=== PATIENT | female | born 1975 | race Caucasian/White ===

== ENCOUNTER 2017-02-13 08:42 | Emergency (ER) | payer BC ==
[2017-02-13 09:12] VITALS: BP 122/80
--- NOTE | 2017-02-13 09:54 | UC ---
Eye Complaint HPI - HPI Summary HPI Summary: she has had uri symptoms and right ear pain and st for a few days and then today noted purulent gt eye discharge. - History of Current Complaint Chief Complaint: UCGeneralIllness Stated Complaint: EYES SORE THROAT SINUS Time Seen by Provider: 02/13/17 09:44 Hx Obtained From: Patient Hx Last Menstrual Period: 01/16/17 ?: No Onset/Duration: Gradual Onset, Lasting Days Timing: Constant Severity Initially: Mild Severity Currently: Moderate Aggravating Factor(s): Nothing Alleviating Factor(s): Nothing Associated Signs And Symptoms: Positive: Drainage (Purulent). Negative: Photophobia, Drainage (Clear), Vision Impairment Bilateral, Vision Impairment Right, Vision Impairment Left, Fever, Swelling - Allergies/Home Medications Allergies/Adverse Reactions: Allergies Allergy/AdvReac Type Severity Reaction Status Date / Time No Known Allergies Allergy Verified 02/13/17 09:12 Home Medications: Home Medications Ibuprofen TAB* [Motrin TAB* 600 MG] 400 mg PO Q6H PRN 02/13/17 [History Confirmed 02/13/17] Sertraline* [Zoloft*] 150 mg PO DAILY 02/13/17 [History Confirmed 02/13/17] PMH/Surg Hx/FS Hx/Imm Hx Endocrine History Of: Denies: Diabetes - Surgical History Surgical History: Yes Surgery Procedure, Year, and Place: T & A - Family History Known Family History: Negative: Diabetes - Social History Occupation: Employed Full-time Lives: With Family Alcohol Use: Occasionally Substance Use Type: None Smoking Status (MU): Never Smoked Tobacco Review of Systems All Other Systems Reviewed And Are Negative: Yes Physical Exam Triage Information Reviewed: Yes Appearance: Well-Appearing, No Pain Distress, Well-Nourished Vital Signs: Initial Vital Signs Temp 97.9 F 02/13/17 09:06 Pulse 90 02/13/17 09:06 Resp 16 02/13/17 09:06 BP 122/80 02/13/17 09:06 Pulse Ox 99 02/13/17 09:06 Vital Signs Reviewed: Yes Eyes: Positive: Conjunctiva Inflamed, Discharge - gt eye purulent discharge with mild conjunctivitis. ENT: Positive: Normal ENT inspection, Hearing grossly normal, Pharyngeal erythema, Nasal congestion, TMs normal, TM dull. Negative: Pharynx normal, Nasal drainage, TM bulging, TM red, Tonsillar swelling, Tonsillar exudate, Trismus, Muffled/hoarse voice Neck exam: Normal Neck: Positive: Supple, Nontender, No Lymphadenopathy. Negative: Nuchal Rigidity Respiratory Exam: Normal Respiratory: Positive: Chest non-tender, Lungs clear, Normal breath sounds, No respiratory distress, No accessory muscle use. Negative: Respiratory distress, Decreased breath sounds, Accessory muscle use, Crackles, Rhonchi, Stridor, Wheezing Cardiovascular Exam: Normal Cardiovascular: Positive: RRR, No Murmur, Pulses Normal Abdominal Exam: Normal Abdomen Description: Positive: Nontender, No Organomegaly Musculoskeletal Exam: Normal Musculoskeletal: Positive: Strength Intact, ROM Intact, No Edema Neurological Exam: Normal Neurological: Positive: Alert, Muscle Tone Normal. Negative: Fatigued, Lethargic, Unresponsive, Abnormal Muscle Tone Psychological Exam: Normal Skin Exam: Normal Skin: Negative: rashes, breakdown Eye Complaint Course/Dx - Differential Dx/Diagnosis Differential Diagnosis/HQI/PQRI: Conjunctivitis, Corneal Abrasion, Foreign Body , Hyphema, Penetrating Injury, Periorbital Cellulitis, Orbital Cellulitis, Retinal Artery Occlusion, Uveitis Provider Diagnoses: uri and congestion. viral uri. viral pharyngitis. gt bacterial conjunctivitis. Discharge - Discharge Plan Condition: Good Disposition: HOME Prescriptions: Sulfacetamide 10 % OPTH.JONNATHAN* [Sulamyd 10% Opth*] 1 drop BOTH EYES Q4H #1 btl Forms: *Work Release Referrals: Татьяна Renee MD [Primary Care Provider] - If Needed
== END 2017-02-13 10:05 | disposition home or self-care (01) ==
LOC: UCCORT 08:42
DX: J06.9 Acute upper respiratory infection, unspecified (principal); H10.33 Unspecified acute conjunctivitis, bilateral
CPT/HCPCS: 99212; G0463

== ENCOUNTER 2017-05-15 19:12 | Emergency (ER) | payer BC | END 2017-05-15 20:24 | disposition left against medical advice (07) | LOC: UCCORT 19:12 | DX: H92.09 Otalgia, unspecified ear (principal); Z53.21 Procedure and treatment not carried out due to patient leaving prior to being seen by health care provider ==

== ENCOUNTER 2017-05-17 07:24 | Emergency (ER) | payer BC ==
[2017-05-17 07:39] VITALS: BP 129/86
--- NOTE | 2017-05-17 08:15 | UC ---
Throat Pain/Nasal Scott HPI - HPI Summary HPI Summary: pt reports 05/20 pain burning/aching in the roof of her mouth that radiates to her bl ears. this has been going on since last saturday. pt has pain with swallowing. she states that the pain is not gettiing worse but it is also not getting better. she feels run down and congested. denies f/c, cough, ledesma(" pain is lower...above my palate and I feel it around my [pointing to upper] teeth" . pt is 12 days s/p gastric bypass surgery. surgeon was called and re-assured pt that presenting sx were not related to surg. - History of Current Complaint Chief Complaint: UCGeneralIllness Stated Complaint: ORAL COMPLAINT Time Seen by Provider: 05/17/17 07:34 Hx Obtained From: Patient Hx Last Menstrual Period: 01/16/17 Onset/Duration: Gradual Onset, Lasting Days - 5, Still Present Severity: Moderate Pain Intensity: 7 Cough: None Associated Signs & Symptoms: Positive: Dysphagia - painful, Sinus Discomfort, Nasal Discharge. Negative: Drooling, Wheezing, Hoarseness, Fever, Vomiting, Rash - Allergies/Home Medications Allergies/Adverse Reactions: Allergies Allergy/AdvReac Type Severity Reaction Status Date / Time No Known Allergies Allergy Verified 05/17/17 07:31 Home Medications: Home Medications Acetaminophen TAB* [Tylenol TAB*] 1,000 mg PO TID PRN 05/17/17 [History Confirmed 05/17/17] Omeprazole CAP* [Prilosec CAP* 20 MG] 20 mg PO DAILY 05/17/17 [History Confirmed 05/17/17] PMH/Surg Hx/FS Hx/Imm Hx Previously Healthy: Yes - Surgical History Surgical History: Yes Surgery Procedure, Year, and Place: T & A. Gastric bypass April 2017 - Family History Known Family History: Negative: Cardiac Disease, Hypertension, Diabetes - Social History Alcohol Use: None Substance Use Type: None Smoking Status (MU): Never Smoked Tobacco - Immunization History Most Recent Influenza Vaccination: NONE Most Recent Tetanus Shot: UTD Most Recent Pneumonia Vaccination: N/A Review of Systems Constitutional: Negative Eyes: Negative ENT: Nasal Discharge, Other - pale boggy nasal mucosa Respiratory: Negative Cardiovascular: Negative Gastrointestinal: Negative Musculoskeletal: Negative Neurological: Negative Psychological: Negative All Other Systems Reviewed And Are Negative: Yes Physical Exam Triage Information Reviewed: Yes Appearance: Well-Appearing, No Pain Distress, Well-Nourished Vital Signs: Initial Vital Signs Temp 97.9 F 05/17/17 07:33 Pulse 104 05/17/17 07:33 Resp 18 05/17/17 07:33 BP 129/86 05/17/17 07:33 Pulse Ox 98 05/17/17 07:33 Vital Signs Reviewed: Yes Eyes: Positive: Conjunctiva Clear. Negative: Discharge ENT: Positive: Hearing grossly normal, Pharynx normal, Nasal drainage, Other: - pale boggy nasal mucosa Neck: Positive: Supple, Nontender, No Lymphadenopathy Respiratory: Positive: Lungs clear, Normal breath sounds, No respiratory distress, No accessory muscle use Cardiovascular: Positive: Tachycardia, Other: - murmur Musculoskeletal Exam: Normal Neurological: Positive: Alert, Muscle Tone Normal Psychological: Positive: Age Appropriate Behavior Skin Exam: Normal Throat Pain/Nasal Course/Dx - Differential Dx/Diagnosis Differential Diagnosis/HQI/PQRI: Peritonsillar Abscess, Pharyngitis, Sinusitis, Tonsillitis, URI, Other - shingles, oral herpes Provider Diagnoses: sinusitis Discharge - Discharge Plan Condition: Stable Disposition: HOME Prescriptions: Amoxicillin/Clavulanate TAB* [Augmentin TAB 875*] 875 mg PO BID #20 tab Patient Education Materials: Sinusitis (ED) Referrals: Татьяна Renee MD [Primary Care Provider] - Additional Instructions: AUGMENTIN: Augmentin is a mixture of amoxicillin and clavulanate. Amoxicillin is a member of the penicillin family. It covers the germs likely to cause ear, bronchial, and urinary infections better than plain penicillin. The addition of clavulanate allows it to cover staph infections of the skin, as well as resistant cases of ear and sinus infections. Your physician has chosen Augmentin for you because of the special nature of your situation. Augmentin is best taken with meals. Nausea after taking the medication is rare, but can occur. Diarrhea can occur, particularly in small children. Vaginal yeast infections, and oral thrush in infants are also common. Contact your physician if these problems occur. Allergy to penicillins is common. If you have had an allergic reaction to any drug of the penicillin family, you should never take any other penicillin. Notify your doctor at once if you develop hives, shortness of breath, swelling, or faintness. ANYTIME YOU TAKE AN ANTIBIOTIC, IT IS IMPORTANT TO REPLENISH THE BODY'D SUPPLY OF "GOOD BACTERIA." YOU CAN GET GOOD BACTERIA FROM HIGH QUALITY CULTURED FOODS SUCH LOCAL YOGURT, SOUR KRAUT, RADHA LUIS MIGUEL, NATURALLY FERMENTED PICKLES AND PROBIOTIC DRINKS. YOU CAN ALSO GET GOOD BACTERIA FROM A PROBIOTIC SUPPLEMENT.
== END 2017-05-17 08:15 | disposition home or self-care (01) ==
LOC: UCCORT 07:24
DX: J32.9 Chronic sinusitis, unspecified (principal); R07.0 Pain in throat; Z98.84 Bariatric surgery status
CPT/HCPCS: 99212; G0463

== ENCOUNTER 2019-11-23 10:13 | Emergency (ER) | payer BC ==
--- OUTSIDE RECORDS SUMMARY | 2019-11-23 11:54 | XMS REPORT | Continuity of Care Document ---
:1975 External Reference #:[id number] Author Name Faye Bradley, MS, [employer], CNM (transmitted by agent of provider Kendra Barbosa) Address [address] [place] [id number] Care Team Providers Name Role Phone Moraima Joseph MD - Internal Medicine Care Team Information Pass Worker [phone] Problems Active Problems Provider Date Sciatica Milton Mario MD, FACS Onset: 07/22/2014 Low back pain Milton Mario MD, FACS Onset: 07/22/2014 Arthralgia of the pelvic region and Milton Mario MD, FACS Onset: 2013 thigh Sprain of knee and leg Milton Mario MD, FACS Onset: 07/02/2014 Social History Type Date Description Comments Sex Unknown Tobacco Use Start: Unknown Never Smoked Cigarettes ETOH Use Denies alcohol use Tobacco Use Start: Unknown Patient denies history of smoking Smoking Status Reviewed: 09/25/19 Patient denies history of smoking Allergies, Adverse Reactions, Alerts Active Allergies Reaction Severity Comments Date No Known Drug Allergy 07/02/2014 Medications Active Medications SIG Qnty Indications Ordering Date Provider Ergocalciferol take one a week 14caps E55.9 [place], 09/25/2019 1.25mg MD Nicole (90002 Ut) Capsules Zoloft take one and a 135tabs Kendra Barbosa, 06/15/2019 100mg Tablets half tablet , PHD once a day at night Immunizations CPT Code Status Date Vaccine Lot # [id number] Given 09/25/2019 Influenza Virus Vaccine, Quadrivalent, 36 Mos+, [id number] Vital Signs Date Vital Result Comment 09/25/2019 8:40am BP Systolic Sitting Left Arm 104 mmHg BP Diastolic Sitting Left Arm 64 mmHg Body Temperature 98.8 F Heart Rate 64 /min Respiratory Rate 16 /min Height 68 inches 5'8" Weight 161.00 lb BMI (Body Mass Index) 24.5 kg/m2 BSA (Body Surface Area) 1.86 m2 [place] body weight in kilograms 63 kg Last Menstrual Period [id number] had ablasion O2 % BldC Oximetry 100 % Ra 05/19/2019 8:57am BP Systolic Sitting Left Arm 102 mmHg BP Diastolic Sitting Left Arm 62 mmHg Body Temperature 98.1 F Heart Rate 66 /min Respiratory Rate 18 /min Height 68 inches 5'8" Weight 171.00 lb BMI (Body Mass Index) 26.0 kg/m2 BSA (Body Surface Area) 1.91 m2 [place] body weight in kilograms 63 kg O2 % BldC Oximetry 98 % ra Results Test Acquired Date Facility Test Result H/L Range Note Laboratory test 09/25/2019 [facility] C. Difficile <pending> finding [address] [place] [address] [phone] Urine Dipstick 09/25/2019 [facility] Ua Color yellow Yellow Ua Clarity clear Clear Ua Leuko trace Negative Ua Nitrite negative Negative Ua Urobilinogen 0.2 0.2 - 1.0 E.U./dL Ua Protein negative Negative Ua PH 7.5 6.5-7.5 Ua Blood negative Negative Ua Specific [place] 1.015 1.010-1.030 Ua Ketones trace Negative Ua Bilirubin negative Negative Ua Glucose negative Negative CBC W/Automated 09/21/2019 [facility] White Blood 5.4 K/uL Normal 3.1-10.[address] [place] [address] [phone] Red Blood Count 4.80 M/uL Normal 3.90-5.40 Hemoglobin 14.2 gm/dL Normal 11.6-15.8 Hematocrit 40.8 % Normal 36.0-46.1 Mean Cell Volume 85.0 fl Normal 80.9-99.0 Mean Corpuscular HGB 29.6 pg Normal 25.9-32.7 Mean Corpuscular HGB Conc 34.8 g/dL High 30.8-34.3 Platelet Count 221 K/uL Normal 155-360 Red Cell Distri Width SD 36.3 fl Normal 36-47 Red Cell Distri Width %CV 11.9 % Normal 11.7-14.4 Mean Platelet Volume 10.4 fl Normal 8.9-12.4 Neut% 74.0 % High 40.4-72.8 Lymph % 18.8 % Low 20.0-42.0 [place] % 6.2 % Normal 4.3-13.2 Eo% 0.2 % Normal 0.0-6.6 Bas% 0.4 % Normal 0.0-1.1 Immature Grans 0.4 % Normal 0.0-5.0 NRBC % 0.0 /100WBC < 10/ 100 WBC Neut# 3.97 K/uL Normal 1.8-7.0 Lymph # 1.01 K/uL Normal 1.0-4.0 [place] # 0.33 K/uL Normal 0.3-0.9 Eos # 0.01 K/uL Normal 0.0-0.5 Baso # 0.02 K/uL Normal 0.0-0.1 Immature Grans Absolute 0.02 K/uL NRBC # 0.00 K/uL Comprehensive Metabolic 09/21/2019 [facility] Glucose 128 mg/dL High 74-106 Panel [address] [place] [address] [phone] BUN 6 mg/dL Low 7-18 Creatinine 0.7 mg/dL Normal 0.6-1.3 Glom Filtration Rate, Estimate >60 mL/min >60 If >60 mL/min >60 2 BUN/Creat 8.5 ratio Sodium 141 mmol/L Normal 136-145 Potassium 3.4 mmol/L Low 3.5-5.1 Chloride 111 mmol/L High 98-107 Carbon Dioxide 24 mmol/L Normal 21-32 Anion Gap 6 mEq/L Low 8-16 Calcium 8.5 mg/dL Normal 8.5-10.1 Total Protein 7.0 g/dL Normal 6.4-8.2 Albumin 3.8 g/dL Normal 3.4-5.0 Globulin 3.2 g/dL Normal 1.9-4.3 Alb/Glob 1.2 ratio Bilirubin,Total 0.4 mg/dL Normal 0.2-1.0 Sgot/Ast 19 U/L Normal 15-37 SGPT/Alt 33 U/L Normal 12-78 Alkaline Phosphatase 85 U/L Normal 45-117 Laboratory test 09/21/2019 [facility] Vitamin 20.1 Low 30.0-100.[address] D,25-Hydroxy ng/mL [place], [place] [id number] [phone] LDL Cholesterol 09/21/2019 [facility] Cholesterol 160 <200 [address] mg/dL [place], [place] [id number] [phone] Triglycerides 82 mg/dL <150 5 HDL Cholesterol 72 mg/dL >40 6 LDL-Cholesterol 72 mg/dL < 100 7 Vitamin B12 And 09/21/2019 [facility] Vitamin B12 425 pg/mL Normal 193-[address] [place] [address] [phone] Folic Acid > 20.0 ng/mL High 3.1-17.5 Glycohemoglobin 09/21/2019 [facility] Glycohemoglobin 4.7 % Normal 4.2-6.[address] (A1c) [place] [address] [phone] eAG 88 mg/dL 1 Z00.00 2 Note: Persistent reduction for 3 months or more in an eGFR <60 mL/min/1.73 m2 defines CKD. Patients with eGFR values >/=60 mL/min/1.73 m2 may also have CKD if evidence of persistent proteinuria is present. The original MDRD equation for estimated GFR is not valid for patients less than 18 years of age. Additional information may be found at www.kdoqi.org. 3 Vitamin D deficiency has been defined by the [place] of [employer] and an Endocrine Society practice guideline as a level of serum 25-OH vitamin D less than 20 ng/mL (1,2). The Endocrine Society went on to further define vitamin D insufficiency as a level between 21 and 29 ng/mL (2). 1. IOM ([place] of [employer]). 2010. Dietary reference intakes for calcium and D. [place]: The National Academies Press. 2. Saumya POWERS, Gala MCGINNIS, Cally MARX, et al. Evaluation, treatment, and prevention of vitamin D deficiency: an Endocrine Society clinical practice guideline. JCEM. 2010; 96(7):1911-30. Performed at: [facility] [address] [id number] Commercial Litigation Attorney: Mikki Clinton MD, Phone: [phone] 4 Reference Guidelines*: Desirable: ........... < 200 mg/dL Borderline High: ..... 200-239 mg/dL High: ................ >= 240 mg/dL * The National Cholesterol Education Program (NCEP) 5 Reference Guidelines*: Normal: ............. < 150 mg/dL Borderline High: .... 150-199 mg/dL High: ............... 200-499 mg/dL Very High: .......... > 500 mg/dL * Source: National Cholesterol Education Program (NCEP) 6 Reference Guidelines*: Low HDL: ..... < 40 mg/dL Normal: ..... 40-60 mg/dL Desirable: ... > 60 mg/dL *The National Cholesterol Education Program(NCEP) 7 Reference Guidelines*: Optimal:........... <100 mg/dL Near Optimal....... 100-129 mg/dL Borderline High.... 130-159 mg/dL High............... 160-189 mg/dL Very High.......... >=190 mg/dL * Source: National Cholesterol Education Program (NCEP) 8 Elevated levels of HbA1c suggest the need for more aggressive treatment of glycemia. The [place] Diabetes Association recommends that a primary goal of therapy should be a HbA1c of <7% and that physicians should re-evaluate the treatment regimen in patients with HbA1c values consistently >8%. Procedures Date Code Description Status 08/11/2019 61288135 Mammogram Completed Medical Devices Description No Information Available Encounters Description No Information Available Assessments Date Code Description Provider 09/25/2019 R19.7 Diarrhea, unspecified Faye Bradley MS, RADHA, DEYSI 09/25/2019 E87.6 Hypokalemia Faye Bradley MS, RADHA, DEYSI 09/25/2019 R73.09 Blood glucose abnormal Faye Bradley MS, [employer], CNM 09/25/2019 E55.9 Vitamin D deficiency Faye Bradley MS, [employer], CNM 09/25/2019 Z98.84 Bariatric surgery status Faye Bradley MS, [employer], CNM 09/25/2019 F41.9 Anxiety disorder, unspecified Faye Bradley MS, [employer], CNM 05/19/2019 Z00.00 Encounter for general adult medical Faye Bradley MS , RADHA, examination without abnormal CNM findings 05/19/2019 F41.9 Anxiety disorder, unspecified Faye Bradley MS, [employer], CNM 05/19/2019 M54.5 Low back pain Faye Bradley MS, [employer], CNM 05/19/2019 Z98.84 Bariatric surgery status Faye Bradley MS, [employer], CNM 05/19/2019 Z12.31 Encounter for screening mammogram Faye Bradley MS, [employer], for malignant neoplasm of breast CNM Plan of Treatment Future Appointment(s):03/25/2020 8:30 am - Faye Bradley MS, [employer], CNM at [facility]/25/2019 - Faye Bradley MS, [employer], CNMR19.7 Diarrhea, unspecifiedNew Labs:Glycohemoglobin A1c, Scheduled: 03/18/20Vitamin D, 25-Hydroxy, Scheduled: 03/18/20CBC W/Automated Diff, Scheduled: 03/18/20Comments :--Increase fluids--If continues send stool sample--[id number] HypokalemiaNew Labs:Comprehensive Metabolic Panel, Scheduled: 03/18/20Potassium , Scheduled: 03/18/20Magnesium, Scheduled: 03/18/20Comments:--Potassium level: 3.4--Eat potassium rich foods such as bananas, potatoes (both sweet and white), beans (white, kidney, wilkerosn, lentils, split peas), yogurt, prunes, fish, winter squash, milk, O.J. --Most likely from [id number] Blood glucose abnormalNew Labs:Glycohemoglobin A1c, Scheduled: 03/18/20Vitamin D,25-Hydroxy, Scheduled: Comments:-- Patient states she was not fasting--Will get HgA1C on RTOE55.9 Vitamin D deficiencyNew Medication:Ergocalciferol 1.25 mg (98694 Ut) - take one a weekNew Labs:Vitamin D,25-Hydroxy, Scheduled: 03/18/20Comments:-- Vitamin D level: 20.1--Take high dose vitamin D, as ordered. When complete, take Vitamin D3 gel capsules 2000 IU QDAYZ98.84 Bariatric surgery statusComments :--Keep F/U OV with [facility]--Doing very well with bariatric xmofaulW72.9 Anxiety disorder, unspecifiedComments:-- Was having increas stress, due to family matter, new puppy--Advised yoga and meditation --Taking sertraline 150 mg po q hs --Advised to keep relationship with her counselor --No suicidal ideology --Monitor moodAllFollow up:--Return to office in 6 months. Please get labs 1 week prior to office visit. Functional Status Description No Information Available Mental Status Description No Information Available Referrals Description No Information Available
[2019-11-23 12:03] VITALS: BP 107/68
--- NOTE | 2019-11-23 12:12 | UC ---
Throat Pain/Nasal Scott HPI - HPI Summary HPI Summary: 44-year-old female who has had cold symptoms and head congestion for greater than one week and now with sinus pressure, postnasal drainage and coughing up green sputum. She feels like the green sputum is more related to postnasal drainage. - History of Current Complaint Chief Complaint: UCRespiratory Stated Complaint: SINUSES Time Seen by Provider: 11/23/19 11:57 Hx Obtained From: Patient Hx Last Menstrual Period: 01/16/17 ?: No Onset/Duration: Gradual Onset Severity: Mild Pain Intensity: 6 Cough: Productive - Productive cough of green sputum which patient thinks is postnasal drainage. Associated Signs & Symptoms: Positive: Sinus Discomfort, Nasal Discharge - Allergies/Home Medications Allergies/Adverse Reactions: Allergies Allergy/AdvReac Type Severity Reaction Status Date / Time No Known Allergies Allergy Verified 11/23/19 11:57 Home Medications: Home Medications Ergocalciferol (Vitamin D2) [Vitamin D2] 50,000 units PO WEEKLY 11/23/19 [ History Confirmed 11/23/19] PMH/Surg Hx/FS Hx/Imm Hx Previously Healthy: Yes - Surgical History Surgical History: Yes Surgery Procedure, Year, and Place: T & A. Gastric bypass April 2017. UTERINE ABLATION - Family History Known Family History: Negative: Cardiac Disease, Hypertension, Diabetes - Social History Occupation: Employed Full-time Lives: With Family Alcohol Use: Weekly Alcohol Amount: 3-4 drinks per week Substance Use Type: None Smoking Status (MU): Never Smoked Tobacco - Immunization History Most Recent Influenza Vaccination: NONE Most Recent Tetanus Shot: UTD Most Recent Pneumonia Vaccination: N/A Review of Systems All Other Systems Reviewed And Are Negative: Yes ENT: Positive: Nasal Discharge, Sinus Congestion, Sinus Pain/Tenderness Respiratory: Positive: Cough Is Patient Immunocompromised?: No Physical Exam Triage Information Reviewed: Yes Appearance: Well-Appearing, No Pain Distress, Well-Nourished Vital Signs: Initial Vital Signs Temp 98.6 F 11/23/19 11:59 Pulse 88 11/23/19 11:59 Resp 20 11/23/19 11:59 BP 107/68 11/23/19 11:59 Pulse Ox 100 11/23/19 11:59 Vital Signs Reviewed: Yes Eyes: Positive: Conjunctiva Clear ENT: Positive: Hearing grossly normal, Pharynx normal - Yellow purulent postnasal drainage, Nasal congestion, Nasal drainage, TMs normal, Sinus tenderness - Bilateral maxillary sinus tenderness., Uvula midline Neck: Positive: Supple, Nontender, No Lymphadenopathy Respiratory: Positive: Lungs clear, Normal breath sounds, No respiratory distress, No accessory muscle use Cardiovascular: Positive: RRR, No Murmur, Pulses Normal, Brisk Capillary Refill Musculoskeletal Exam: Normal Neurological Exam: Normal Psychological Exam: Normal Skin Exam: Normal Throat Pain/Nasal Course/Dx - Course Course Of Treatment: The patient is comfortable here and does not appear ill. - Differential Dx/Diagnosis Provider Diagnosis: Sinusitis Discharge ED - Sign-Out/Discharge Documenting (check all that apply): Patient Departure All imaging exams completed and their final reports reviewed: No Studies - Discharge Plan Condition: Good Disposition: HOME Prescriptions: DOXYcycline CAP(*) [DOXYcycline 100MG CAP(*)] 100 mg PO BID 10 Days #20 cap Patient Education Materials: Sinusitis (ED) Referrals: Faye Bradley CNM [Primary Care Provider] - Additional Instructions: Increase fluids, no dairy products, antacids or multivitamins 2 hours before you take the doxycycline and 2 hours after however take it with food. Follow- up with your primary care provider if no improvement in 5-7 days. - Billing Disposition and Condition Condition: GOOD Disposition: Home - Attestation Statements Provider Attestation: This patient was not seen by me. I was available for consult. Chart reviewed. ASHLEY
== END 2019-11-23 12:28 | disposition home or self-care (01) ==
LOC: UCCORT 10:13
DX: J32.9 Chronic sinusitis, unspecified (principal); R05 Cough
CPT/HCPCS: 99212; G0463